=== PATIENT | male | born 1960 | race Caucasian/White ===

== ENCOUNTER → 2016-11-16 | Outpatient (CLI) | payer BC, OTHER ==
[~2016-11-16] MED LIST: ADV250INH INH; ASPI1TAB PO; FISH100049 PO; LISI10TA2 PO; MULTTAB12 PO; PRIL20CA9 PO
[2016-11-16 13:30] LABS: BASO % 0.6 % (0.0-1.0); EOS # 0.1 K/mm3 (0.0-0.50); EOS % 1.7 % (0.0-3.0); LARGE UNSTAINED CELL # 0.1 K/mm3 (0.0-0.4); LARGE UNSTAINED CELL % 1.7 % (0.0-4.0); LYMPH # 1.6 K/mm3 (1.5-4.5); MEAN CORPUSCULAR HEMOGLOBIN 25.8 pg (27.0-33.0); MEAN CORPUSCULAR HGB CONC 31.8 g/dl (32.0-36.5); MEAN CORPUSCULAR VOLUME 81.2 fl (80.0-96.0); MONO # 0.5 K/mm3 (0.0-0.8); MONO % 7.3 % (0.0-5.0); NEUTROPHILS # 4.4 K/mm3 (1.8-7.7); NEUTROPHILS % 66.7 % (36.0-66.0); PLATELET COUNT, AUTOMATED 242 k/mm3 (150-450); RED CELL DISTRIBUTION WIDTH 15.5 % (11.5-14.5); WHITE BLOOD COUNT 6.7 K/mm3 (4.0-10.0)
[2016-11-16 14:21] LABS: ALBUMIN 3.7 GM/DL (3.2-5.2); ALBUMIN/GLOBULIN RATIO 0.95 (1.00-1.93); ALKALINE PHOSPHATASE 96 U/L (45-117); ALT/SGPT 72 U/L (12-78); ANION GAP 7 MEQ/L (8-16); AST/SGOT 40 U/L (15-37); BILIRUBIN,TOTAL 0.7 MG/DL (0.2-1.0); BLOOD UREA NITROGEN 16 MG/DL (7-18); CALCIUM LEVEL 8.7 MG/DL (8.5-10.1); CARBON DIOXIDE LEVEL 28 MEQ/L (21-32); CHLORIDE LEVEL 103 MEQ/L (98-107); CHOLESTEROL LEVEL 178 MG/DL (<200); CREATININE FOR GFR 0.96 MG/DL (0.70-1.30); GLOMERULAR FILTRATION RATE > 60.0 (>56); GLUCOSE, FASTING 98 MG/DL (70-105); POTASSIUM SERUM 4.5 MEQ/L (3.5-5.1); SODIUM LEVEL 138 MEQ/L (136-145); TOTAL PROTEIN 7.6 GM/DL (6.4-8.2); TRIGLYCERIDES LEVEL 169 MG/DL (<150)
[2016-11-17 14:16] LABS: PSA TOTAL 3.2 ng/mL (0.0-4.0)
== END ==
LOC: M WUC 10:52
PROVIDERS: ATTEND Nurse Practitioner Family
DX: I10 Essential (primary) hypertension (principal); D50.9 Iron deficiency anemia, unspecified; Z12.5 Encounter for screening for malignant neoplasm of prostate; E78.5 Hyperlipidemia, unspecified

== ENCOUNTER → 2016-12-19 | Outpatient (CLI) | payer BC, OTHER ==
[~2016-12-19] MED LIST changes: +FERR325T3 PO; +FLUTISP; +VITMTA PO
[2016-12-19 18:30] LABS: ALBUMIN/GLOBULIN RATIO 1.03 (1.00-1.93); ALKALINE PHOSPHATASE 101 U/L (45-117); ALT/SGPT 95 U/L (12-78); ANION GAP 6 MEQ/L (8-16); AST/SGOT 50 U/L (15-37); BILIRUBIN,TOTAL 0.9 MG/DL (0.2-1.0); BLOOD UREA NITROGEN 19 MG/DL (7-18); CALCIUM LEVEL 9.2 MG/DL (8.5-10.1); CARBON DIOXIDE LEVEL 29 MEQ/L (21-32); CHLORIDE LEVEL 105 MEQ/L (98-107); CHOLESTEROL LEVEL 181 MG/DL (<200); CREATININE FOR GFR 1.01 MG/DL (0.70-1.30); GLOMERULAR FILTRATION RATE > 60.0 (>56); GLUCOSE, FASTING 88 MG/DL (70-105); SODIUM LEVEL 140 MEQ/L (136-145); TOTAL PROTEIN 7.9 GM/DL (6.4-8.2); TRIGLYCERIDES LEVEL 133 MG/DL (<150)
[2016-12-19 20:24] LABS: BASO % 0.3 % (0.0-1.0); EOS # 0.1 K/mm3 (0.0-0.50); EOS % 1.3 % (0.0-3.0); LARGE UNSTAINED CELL # 0.1 K/mm3 (0.0-0.4); LARGE UNSTAINED CELL % 1.7 % (0.0-4.0); LYMPH # 1.6 K/mm3 (1.5-4.5); MEAN CORPUSCULAR HEMOGLOBIN 28.2 pg (27.0-33.0); MEAN CORPUSCULAR HGB CONC 32.7 g/dl (32.0-36.5); MEAN CORPUSCULAR VOLUME 86.2 fl (80.0-96.0); MONO # 0.4 K/mm3 (0.0-0.8); MONO % 6.2 % (0.0-5.0); NEUTROPHILS # 4.7 K/mm3 (1.8-7.7); NEUTROPHILS % 68.4 % (36.0-66.0); PLATELET COUNT, AUTOMATED 213 k/mm3 (150-450); RED CELL DISTRIBUTION WIDTH 17.4 % (11.5-14.5); WHITE BLOOD COUNT 6.9 K/mm3 (4.0-10.0)
== END ==
LOC: M WUC 13:44
PROVIDERS: ATTEND Nurse Practitioner Family
DX: I10 Essential (primary) hypertension (principal); D50.9 Iron deficiency anemia, unspecified; E78.4 Other hyperlipidemia

== ENCOUNTER 2016-12-21 10:44 | Inpatient (IN) | payer BC, OTHER ==
[2016-12-21] VITALS (28 sets, daily range): BP systolic 74–144; BP diastolic 47–79
[~2016-12-21] VITALS: Ht 180.3 cm; Wt 118.5 kg
[~2016-12-21 10:44] MED LIST changes: -FERR325T3 PO; -FLUTISP; -VITMTA PO
[2016-12-21] MEDS ORDERED: ONDANSETRON 4MG/2ML VIAL (J2405) IV ONE (11:00)
[2016-12-21] MEDS ORDERED: NS 1,000 ML IV ONE ×2 (11:00→19:30)
[2016-12-21] MEDS ORDERED: FERR325T3 PO (11:23)
[2016-12-21 11:40] LABS: BASO % 0.1 % (0.0-1.0); EOS % 0.1 % (0.0-3.0); LARGE UNSTAINED CELL # 0.1 K/mm3 (0.0-0.4); LARGE UNSTAINED CELL % 0.8 % (0.0-4.0); LYMPH # 2.2 K/mm3 (1.5-4.5); LYMPH % 13.3 % (24.0-44.0); MEAN CORPUSCULAR HEMOGLOBIN 27.5 pg (27.0-33.0); MEAN CORPUSCULAR HGB CONC 31.8 g/dl (32.0-36.5); MEAN CORPUSCULAR VOLUME 86.3 fl (80.0-96.0); MONO # 0.6 K/mm3 (0.0-0.8); MONO % 3.6 % (0.0-5.0); NEUTROPHILS # 12.9 K/mm3 (1.8-7.7); NEUTROPHILS % 82.1 % (36.0-66.0); PLATELET COUNT, AUTOMATED 290 k/mm3 (150-450); RED CELL DISTRIBUTION WIDTH 17.8 % (11.5-14.5); WHITE BLOOD COUNT 15.7 K/mm3 (4.0-10.0)
[2016-12-21 11:44] LABS: INR 1.19
--- NOTE | 2016-12-21 11:50 | REP ---
Portable chest, single AP view, patient sitting: Comparison is 08/02/2010. The lung littlejohn are clear. The cardiac size is normal. The taqueria, mediastinum, and bony thorax are unremarkable. Impression: Negative portable chest. There is no interval change Signed by Zaki Helm MD 12/21/2016 11:41 A
[2016-12-21 11:58] LABS: ALBUMIN 3.1 GM/DL (3.2-5.2); ALBUMIN/GLOBULIN RATIO 0.91 (1.00-1.93); ALKALINE PHOSPHATASE 66 U/L (45-117); ALT/SGPT 58 U/L (12-78); AMYLASE 24 U/L (25-115); ANION GAP 8 MEQ/L (8-16); AST/SGOT 22 U/L (15-37); BILIRUBIN,DIRECT 0.1 MG/DL (0.0-0.2); BILIRUBIN,TOTAL 0.8 MG/DL (0.2-1.0); BLOOD UREA NITROGEN 46 MG/DL (7-18); CALCIUM LEVEL 8.3 MG/DL (8.5-10.1); CARBON DIOXIDE LEVEL 25 MEQ/L (21-32); CHLORIDE LEVEL 108 MEQ/L (98-107); CREATININE FOR GFR 1.15 MG/DL (0.70-1.30); GLOMERULAR FILTRATION RATE > 60.0 (>56); GLUCOSE, FASTING 212 MG/DL (70-105); POTASSIUM SERUM 4.6 MEQ/L (3.5-5.1); SODIUM LEVEL 141 MEQ/L (136-145); TOTAL PROTEIN 6.5 GM/DL (6.4-8.2)
[2016-12-21] MEDS ORDERED: VITMTA PO (13:13)
[2016-12-21] MEDS ORDERED: FLUTISP (13:15)
[2016-12-21] MEDS ORDERED: NS 1,000 ML IV SCH (13:44)
--- NOTE | 2016-12-21 13:44 | HPEPDOC ---
Medical History and Physical Date of Admission Dec 21, 2016 at 12:42 History and Physical ATTENDING: Dr. De La Rosa PCP: Varun Hickman NP CC: nausea HPI: 56yoM with a past medical history significant for HTN, GERD, Fe def anemia who states he felt well until yesterday around 3 pm. He felt weak and nauseated and lied down to rest. When he got up he had persistent nausea and black colored diarrhea. He states he has had approximately 20 episodes of diarrhea since then. Denies abdominal pain, feels bloated. Denies vomitting. States he noticed red color and maroon color in the toilet. Denies any fevers, chills, weakness, fatigue, VASQUEZ, CP, SOB, cough, palpitations , abdominal pain, N/V/D or changes in bowel or bladder habits. Upon presentation to the hospital the patient was found to have UGI bleeding, thus the hospitalist team was consulted. PMHx: [place] HTN GERD ENE/CPAP Fe def anemia allergic rhinitis PSHX: finger surgery as child. EGD 02/14 H/H. gastric polyp. [place] Michie 11/14 hyperplastic polyp x 2. [facility]. SOCHX: Resides in: [facility] Marital Status: Kids: 2. Employment: terminated from [employer] earlier this week. Tobacco use: quit 20 years ago ETOH: 8-10 beers per week. Illicit Drugs: Denies Recent travel: denies Advanced directives: none FAMHX: Mother: heart disease, DM,HTN Father: prostate Ca Siblings: Alive, HTN,DM Children: Alive, well. 1 dtr with h/o PFO. Unexpected deaths due to medical reasons: None. ROS: As noted in HPI, otherwise 11pt ROS of systems reviewed and unremarkable. PE: GEN: 56yoM, appears stated age. Well-nourished, well developed. No acute distress. Alert and oriented x 3. Pleasant, interactive. HEENT: Normocephalic, atraumatic. Pupils are equal, round, and reactive to light. Extraocular movements are intact. No nystagmus appreciated. Sclera are nonicteric. Conjunctiva without injection. Nose midline. Nasal turbinates without bogginess. EACs both patent BL. TMs both visualized and overton with good cone of light, no bulging or erythema. No facial asymmetry. Moist mucous membranes. Dentition fair. Pharynx pink and moist, no cobblestoning. Neck supple , trachea midline. No lymphadenopathy or thyromegaly appreciated. CHEST: Regular rate and rhythm, +S1, +S2 LUNGS: Clear to auscultation bilaterally. No wheezes, rales, or rhonchi. Breathing appears symmetric and easy. Patient is speaking in full sentences. No accessory muscle use. ABD: Protuberant, soft, non-tender, non-distended. +Bowel sounds throughout. No rebound or guarding. No costovertebral angle tenderness. EXT: Pulses 2+ bilaterally dorsalis pedis and radial. No lower extremity edema appreciated. SKIN: [place], dry, warm. Capillary refill <2sec. No rashes. NEURO: Alert and oriented x 3. Cranial nerves III-XII are intact. No focal deficits appreciated. Heme pos in ED. CXR: Negative portable chest. There is no interval change EKG: ST 111bpm. BLOOD CULTURES: x 2 pending UA/UC pending Cdiff/GI panel pending. A&P: 56yoM with a past medical history significant for HTN, GERD, Fe def anemia who states he felt well until yesterday around 3 pm. He felt weak and nauseated and lied down to rest. When he got up he had persistent nausea and black colored diarrhea. He states he has had approximately 20 episodes of diarrhea since then 1. The patient will be admitted to PCU for at least [address] De La Rosa's service. 2. UGI bleeding. S/P IVF in ED. NPO. IV Protonix Q12. ASA on hold. IVF at 75cc/ hr. GI panel/Cdiff/BC/UC pending. Consent for transfusion on chart. Q6 H/H. Dr Burns consulted and plans for scoping tomorrow. 3. Asthma. Advair/Alb prn 4. HTN. Initial BP in ED 96/71. Hold ACEI/HCTZ. Monitor. 5. OAS. CPAP. 6. GERD. PPI. 7. Allergic rhinitis. Flonase. 8. H/O Fe def anemia. Hold Fe supplement. DVT prophylaxis. SCD/TEDS The patient is a Full code. Vital Signs Vital Signs Date Time Temp Pulse Resp B/P (MAP) Pulse Ox O2 Delivery O2 Flow Rate FiO2 12/21/16 11:59 6/22/17 11:03 96.0 113 18 Room Air Laboratory Data Labs 24H Laboratory Tests 2 12/21/16 11:02: White Blood Count 15.7H, Red Blood Count 3.69L, Hemoglobin 10.1#L, Hematocrit 31.9L, Mean Corpuscular Volume 86.3, Mean Corpuscular Hemoglobin 27.5, Mean Corpuscular Hemoglobin Concent 31.8L, Red Cell Distribution Width 17.8H, Platelet Count 290, Neutrophils (%) (Auto) 82.1H, Lymphocytes (%) (Auto) 13.3L, Monocytes (%) (Auto) 3.6, Eosinophils (%) (Auto) 0.1, Basophils (%) (Auto) 0.1, Neutrophils # (Auto) 12.9H, Lymphocytes # (Auto) 2.2, Monocytes # (Auto) 0.6, Eosinophils # (Auto) 0.0, Basophils # (Auto) 0.0, Large Unclassified Cells % 0.8 , Large Unclassified Cells # 0.1, Prothrombin Time 15.2H, Prothromb Time International Ratio 1.19, Activated Partial Thromboplast Time 25.9L, Anion Gap 8 , Glomerular Filtration Rate > 60.0, Lactic Acid Level 2.8*H, Calcium Level 8.3L , Aspartate Amino Transf (AST/SGOT) 22, Alanine Aminotransferase (ALT/SGPT) 58, Alkaline Phosphatase 66, Total Bilirubin 0.8, Direct Bilirubin 0.1, Total Creatine Kinase 85, Creatine Kinase MB 1.0, Creatine Kinase MB Relative Index 1.17, Troponin I < 0.02, Total Protein 6.5, Albumin 3.1#L, Albumin/Globulin Ratio 0.91L, Amylase Level 24L, Lipase 148 CBC/BMP Laboratory Tests 12/21/16 11:02 Red Blood Count 3.69 L, Mean Corpuscular Volume 86.3, Mean Corpuscular Hemoglobin 27.5, Mean Corpuscular Hemoglobin Concent 31.8 L, Red Cell Distribution Width 17.8 H, Neutrophils (%) (Auto) 82.1 H, Lymphocytes (%) (Auto ) 13.3 L, Monocytes (%) (Auto) 3.6, Eosinophils (%) (Auto) 0.1, Basophils (%) ( Auto) 0.1, Neutrophils # (Auto) 12.9 H, Lymphocytes # (Auto) 2.2, Monocytes # ( Auto) 0.6, Eosinophils # (Auto) 0.0, Basophils # (Auto) 0.0 Microbiology Microbiology 12/21/16 Blood Culture, Received Pending 12/21/16 Blood Culture, Received Pending Home Medications Scheduled (Lisinopril/Hydrochlorothi 10-12.5 mg) 1 Tab Tab, 1 TAB PO DAILY Aspirin (Aspirin 81) 81 Mg Tab, 81 MG PO DAILY Ferrous Sulfate (Ferrous Sulfate) 325 Mg Tab, 325 MG PO DAILY Fish Oil (Fish Oil 1000 mg) 1 Cap Cap, 1 CAP PO DAILY Fluticasone Propionate (Fluticasone Propionate) 50 Mcg/Act Spr, 1 SPRAY NA DAILY Multivitamins *[facility] STOCKED* (Thera M Plus *[facility] STOCKED*) 1 Tab Tab, 1 TAB PO DAILY Omeprazole (Prilosec) 20 Mg Cap, 20 MG PO DAILY Miscellaneous Medications Salmeterol/Fluticasone (Advair Diskus 250-50 Mcg/Dose) 14 Puff/Inhaler Aerp, 1 PUFF INH Allergies Coded Allergies: Macadamia Nut Oil (Verified Allergy, Severe, Throat swelling and burning of the lips, 12/21/16) Janki Lee Dec 21, 2016 13:44
[2016-12-21] MEDS ORDERED: ONDANSETRON 4MG/2ML VIAL (J2405) IV PRN ×2 (13:45→22:45)
[2016-12-21] MEDS: FLUTICASONE PROP 0.05% NASAL SPRAY 16 GM (FLONASE) SCH (16:43)
[2016-12-21] MEDS ORDERED: GASTROGRAFIN SOLUTION 30ML PO ONE (19:00)
[2016-12-21] MEDS ORDERED: GASTROGRAFIN SOLUTION 30ML (Q9963) PO ONE (19:30)
[2016-12-21] MEDS ORDERED: MIDAZOLAM INJ 2 MG/2 ML VIAL (J2250) IV STA (20:07)
[2016-12-21] MEDS ORDERED: PROPOFOL 200 MG/20 ML VIAL As Ordered ONE (20:52)
[2016-12-21] MEDS ORDERED: LIDOCAINE 2% INJ 100 MG/5 ML SDV (FOR ANES.) As Ordered ONE (20:52)
[2016-12-21] MEDS ORDERED: MIDAZOLAM INJ 2 MG/2 ML VIAL (J2250) As Ordered ONE (20:54)
[2016-12-21] MEDS: ADVAIR DISKUS 250/50 INH PWD INH SCH (21:00)
[2016-12-21] MEDS ORDERED: VASOPRESSIN INJ 20 UNITS/ML VIAL As Ordered ONE (21:14)
[2016-12-21] MEDS ORDERED: PHENYLephrine HCL 500 MCG/5 ML (100MCG/ML) SYRINGE (J2370) As Ordered ONE (21:15)
[2016-12-21] MEDS ORDERED: GLYCOPYRROLATE INJ 0.2 MG/ML 2 ML VIAL As Ordered ONE (22:16)
[2016-12-21] MEDS ORDERED: NEOSTIGMINE 1MG/ML 5 ML SYRINGE (J2710) As Ordered ONE (22:16)
[2016-12-21] MEDS ORDERED: LR 1,000 ML IV SCH (22:45)
[2016-12-21] MEDS: PANTOPRAZOLE 40MG INJ (PROTONIX) (C9113) IV SCH (23:30)
[2016-12-21] MEDS: NS 1,000 ML IV SCH (23:31)
[2016-12-22] VITALS (128 sets, daily range): BP systolic 75–150; BP diastolic 48–99
[2016-12-22 04:25] LABS: MEAN CORPUSCULAR HEMOGLOBIN 28.8 pg (27.0-33.0); MEAN CORPUSCULAR HGB CONC 33.3 g/dl (32.0-36.5); MEAN CORPUSCULAR VOLUME 86.4 fl (80.0-96.0); RED CELL DISTRIBUTION WIDTH 16.4 % (11.5-14.5); WHITE BLOOD COUNT 16.7 K/mm3 (4.0-10.0)
[2016-12-22 04:53] LABS: ALBUMIN 2.3 GM/DL (3.2-5.2); ALBUMIN/GLOBULIN RATIO 0.92 (1.00-1.93); BILIRUBIN,TOTAL 1.3 MG/DL (0.2-1.0); CALCIUM LEVEL 7.3 MG/DL (8.5-10.1); CREATININE FOR GFR 1.53 MG/DL (0.70-1.30); TOTAL PROTEIN 4.8 GM/DL (6.4-8.2)
--- NOTE | 2016-12-22 05:56 | ECGEPIP ---
Stationary ECG Study [facility] - ED Test Date: 2016-12-21 Pat Name: RADHA UGALDE Department: Room: - Gender: M Master Tax Advisor: chinyere : 1960 Requested By: Janice Navarro Order Number: [id number] Reading MD: Chaim Ivory Measurements Intervals [place] Rate: 111 P: 57 MA: 155 QRS: 43 QRSD: 85 T: 73 QT: 321 QTc: 438 Interpretive Statements SINUS TACHYCARDIA Electronically Signed On 12-22-2016 5:55:44 EDT by Chaim Ivory
[2016-12-22] MEDS: ADVAIR DISKUS 250/50 INH PWD INH SCH ×2 (07:37→22:07)
[2016-12-22] MEDS: FLUTICASONE PROP 0.05% NASAL SPRAY 16 GM (FLONASE) SCH (08:28)
[2016-12-22] MEDS: PANTOPRAZOLE 40MG INJ (PROTONIX) (C9113) IV SCH ×2 (08:28→21:09)
[2016-12-22] MEDS: NS 1,000 ML IV SCH ×3 (08:29→19:16)
[2016-12-22] MEDS ORDERED: NS 1,000 ML IV ONE ×3 (11:00→19:00)
--- NOTE | 2016-12-22 11:44 | IPNPDOC ---
Text Note Date of Service The patient was seen on 12/22/16. NOTE Subjective: Patient is a 56 year old male with a PMHx of HTN, GERD, ENE on CPAP, Iron deficiency anemia, Asthma and Allergic rhinitis who presented to the ER because of nausea and fatigue. He also experienced several episodes of dark colored bowel movement; he described the stool as maroon and red. Patient was admitted for a suspected upper GI bleed. Patient was taken for an EGD on 12/21 afternoon and found that he had some areas of possible concern, however a clear source of the bleeding was not determined. He was transferred back to the floor and began to have more bloody bowel movements. He was later upgraded to ICU because of hypotension and persistent bleeding. Patient was seen and examined at the bedside. He noted some dizziness and has had a few episodes of bloody bowel movements this morning. He denies abdominal pain, nausea or vomiting. Objective: Vitals (See below) General: Lying in bed, no acute distress, comfortable, AAOx3 HEENT: NC, AT CVS: Tachycardic, regular rhythm, +S1S2 Lungs: Fair air entry b/l, -w/r/r Abdomen: Soft, ND, NT, +BSx4 Extremities: +PPx4, - Edema, - Calf tenderness Assessment and plan: 1. Hypovolemic shock - 2/2 acute blood loss anemia / symptomatic anemia - likely 2/2 GI bleeding - likely 2/2 lower GI etiology - Presented with dark stools / bright red stools, several episodes of diarrhea - EGD (12/21) completed by Dr. Burns; no clear evidence of upper GI bleed - Has continued to have bloody bowel movements this morning - Hg upon admission 10.1 - s/p 5 units of PRBC transfusion - Will f/u H&H [id number], Coagulation panel, LDH, Fibrinogen / FDP - Case discussed with Dr. Burns / Dr. Johnson - will take the patient for angiogram to establish source of bleed (suspected diverticular origin) - Dr. Victor on consult; will discuss case - Will transfuse 2 units of PRBC and 2 units of FFP at this time - c/w Protonix 40 IV q12h and aggressive IV fluid hydration 2. LUCIEN - likely 2/2 pre-renal etiology 2/2 hypovolemia - c/w aggressive IV fluid hydration 3. Asthma - no evidence of exacerbation - c/w Advair and Albuterol PRN 4. HTN - BP medications on hold 5. ENE on CPAP - c/w home CPAP use 6. Allergic rhinitis - c/w Flonase 7. Iron deficiency anemia - hold iron supplementation for now 8. GERD - c/w PPI 9. DVT prophylaxis - c/w SCDs VS,Fishbone, I+O VS, Fishbone, I+O Laboratory Tests 12/21/16 16:46 12/21/16 22:59 12/22/16 04:17 Red Blood Count 3.42 L, Mean Corpuscular Volume 86.4, Mean Corpuscular Hemoglobin 28.8, Mean Corpuscular Hemoglobin Concent 33.3, Red Cell Distribution Width 16.4 H, Calcium Level 7.3 L, Aspartate Amino Transf (AST/SGOT ) 19, Alanine Aminotransferase (ALT/SGPT) 34, Alkaline Phosphatase 45, Total Bilirubin 1.3 #H, Total Protein 4.8 #L, Albumin 2.3 #L 12/22/16 08:09 Vital Signs Date Time Temp Pulse Resp B/P (MAP) Pulse Ox O2 Delivery O2 Flow Rate FiO2 12/22/16 09:47 97.6 121 18 130/56 (80) 94 Room Air 12/21/16 23:15 2.0 I&O- Last 24 Hours up to 6 AM 12/22/16 06:00 Intake Total 4180 ml Output Total 1225 ml Balance 2955 ml MYKE PORTILLO MD Dec 22, 2016 11:44
[2016-12-22 12:47] LABS: INR 1.33
[2016-12-22] MEDS ORDERED: HEPARIN 1,000 UNITS/ML 10ML VIAL (FOR RADIOLOGY& DIALYSIS ONLY) As Ordered ONE (14:08)
[2016-12-22] MEDS ORDERED: ISOVUE-300 61% 50ML VIAL (Q9967) As Ordered ONE ×5 (14:08→19:27)
--- NOTE | 2016-12-22 14:08 | ROOR ---
Patient Name: Faisal Najera Procedure Date: 12/21/2016 9:55 PM Date of : 1960 Age: 56 Gender: Male Note Status: Finalized Procedure: Upper GI endoscopy + Hemoclips. Indications: Active gastrointestinal bleeding Providers: Vinicio Burns MD Referring MD: 1. No Referring Physician 1. No Referring Physician, Admin. Requesting Provider: Medicines: General Anesthesia Complications: No immediate complications. Procedure: Pre-Anesthesia Assessment: - The heart rate, respiratory rate, oxygen saturations, blood pressure, adequacy of pulmonary ventilation, and response to care were monitored throughout the procedure. The Endoscope was introduced through the mouth, and advanced to the second part of duodenum. The upper GI endoscopy was accomplished without difficulty. The patient tolerated the procedure well. Findings: The Z-line was irregular and was found 40 cm from the incisors. There is no endoscopic evidence of varices in the entire esophagus. There is no endoscopic evidence of bleeding in the entire examined stomach. Two diminutive mucosal papules (nodules) with no bleeding and no stigmata of recent bleeding were found in the stomach. To prevent bleeding post-intervention, three hemostatic clips were successfully placed (MR conditional). There was no bleeding at the end of the procedure. The exam of the duodenum was otherwise normal. Impression: - Z-line irregular, 40 cm from the incisors. - Two mucosal papules (nodules) found in the stomach. Clips (MR conditional) were placed. - No specimens collected. - The examination was otherwise normal. Recommendation: - Patient has a contact number available for emergencies. The signs and symptoms of potential delayed complications were discussed with the patient. Return to normal activities tomorrow. Written discharge instructions were provided to the patient. - Return patient to ICU for ongoing care. - The findings and recommendations were discussed with the patient's family. Vinicio Burns MD Vinicio Burns MD 12/22/2016 2:07:35 PM This report has been signed electronically. Number of Addenda: 0 Note Initiated On: 12/21/2016 9:55 PM Estimated Blood Loss: Estimated blood loss: none.
[2016-12-22] MEDS ORDERED: fentaNYL 100 MCG/2 ML INJECTION (J3010) As Ordered ONE (14:33)
[2016-12-22] MEDS ORDERED: MIDAZOLAM INJ 2 MG/2 ML VIAL (J2250) As Ordered ONE (14:33)
[2016-12-22 17:06] LABS: BASO % 0.2 % (0.0-1.0); EOS % 0.1 % (0.0-3.0); LARGE UNSTAINED CELL # 0.2 K/mm3 (0.0-0.4); LARGE UNSTAINED CELL % 1.3 % (0.0-4.0); LYMPH # 1.8 K/mm3 (1.5-4.5); LYMPH % 12.2 % (24.0-44.0); MEAN CORPUSCULAR HEMOGLOBIN 29.6 pg (27.0-33.0); MEAN CORPUSCULAR HGB CONC 33.2 g/dl (32.0-36.5); MEAN CORPUSCULAR VOLUME 89.2 fl (80.0-96.0); MONO # 1.1 K/mm3 (0.0-0.8); MONO % 7.1 % (0.0-5.0); NEUTROPHILS # 11.9 K/mm3 (1.8-7.7); NEUTROPHILS % 79.2 % (36.0-66.0); PLATELET COUNT, AUTOMATED 141 k/mm3 (150-450); RED CELL DISTRIBUTION WIDTH 16.2 % (11.5-14.5)
[2016-12-22 17:31] LABS: ALBUMIN 1.7 GM/DL (3.2-5.2); BILIRUBIN,TOTAL 0.7 MG/DL (0.2-1.0); CALCIUM LEVEL 6.6 MG/DL (8.5-10.1); CREATININE FOR GFR 1.35 MG/DL (0.70-1.30); GLOMERULAR FILTRATION RATE 57.8 (>56); POTASSIUM SERUM 4.3 MEQ/L (3.5-5.1); TOTAL PROTEIN 3.4 GM/DL (6.4-8.2)
--- NOTE | 2016-12-22 18:41 | REP ---
AP SEMI-ERECT PORTABLE CHEST: 12/22/2016 at 05:39 PM. Comparison: 12/21/2016. Clinical history: Central line placement. Findings: There is a right jugular catheter but it terminates at about the superior margin of the medial head of the right clavicle in the jugular vein. No apical fluid collection, right sided effusion or pneumothorax. No abnormal widening of mediastinum. Allowing for this portable seated technique in a semi-erect position. Impression: 1. Right jugular catheter with tip in the jugular vein at level of the superior margin of the medial clavicle. No pneumothorax, effusion or other acute finding. Signed by Earl Fuller MD 12/22/2016 08:47 P
--- NOTE | 2016-12-22 23:05 | CR ---
DATE OF CONSULTATION: 12/21/2016 REASON FOR CONSULTATION: This is a 56-year-old white male who was admitted to [facility] ([facility]) on 12/21/2016. The patient presented with a history of non feeling well approximately 24 hours prior to admission with generally feeling weak and nauseated and almost passing out. He had apparently a persistent black-colored diarrhea up to 20 episodes of frequent bowel movements. No apparent hematemesis, no hematemesis or vomiting. Apparently had red color in the stool and maroon, red colored bowel movements. The patient . He has had previous upper endoscopy approximately a year ago for anemia. Had a colonoscopy which showed diverticulosis. Upper endoscopy showed he had a gastric polyp which was ligated. Had a repeat followup scope that showed that the polyp was not present anymore. The patient apparently his anemia corrected and he was doing well until 24 hours prior to this admission. PAST MEDICAL HISTORY: 1. Positive for asthma 2. Hypertension. 3. Gastroesophageal reflux disease (GERD). 4. Iron-deficiency anemia 5. Allergic rhinitis. PAST SURGICAL HISTORY: Upper endoscopy in January 2016, where he had gastric polyp and colonoscopy some time in October where he had a hyperplastic polyp. SOCIAL HISTORY: Cigarettes, alcohol noncontributory. The patient drinks about 8-10 beers per week. FAMILY HISTORY: Noncontributory to above problem. REVIEW OF SYSTEMS: Negative. PHYSICAL EXAMINATION: GENERAL: Well-developed, well-nourished, somewhat pale-appearing white male in no obvious acute distress. Appears stated age. CHEST: Was clear to auscultation. CARDIOVASCULAR: Exam showed regular rhythm. No murmurs or gallops. Normal physiological split S1, S2. ABDOMEN: Soft, nontender. No masses, guarding, rebound, hepatosplenomegaly. Bowel sounds positive. EXTREMITIES: No cyanosis, clubbing, edema. LABORATORY STUDIES: On admission showed a hemoglobin of 10 and 31.9. The patient's chemistry was normal. Amylase and lipase were normal. Coagulation showed an INR of 1.19 on admission. It has gone up over the last 24 hours to 1.33. ANALYSIS: Gastrointestinal (GI) bleed most likely probable is a low GI source. PLAN: Set the patient up for an upper endoscopy to evaluate for possible upper GI bleeding source versus acute diverticular bleed. The patient should be given blood products as needed and fresh frozen plasma as needed.
[2016-12-23] VITALS (42 sets, daily range): BP systolic 107–152; BP diastolic 55–97
--- NOTE | 2016-12-23 00:34 | CR ---
DATE OF CONSULTATION: 12/22/2016 REASON FOR CONSULTATION: Lower gastrointestinal (GI) bleed. HISTORY OF PRESENT ILLNESS: The patient is a very pleasant 56-year-old man who presented on 12/21 with a 1-day history of some dark stool with black diarrhea. This had begun on Sunday at about three in the afternoon. He apparently has an underlying history of iron deficiency anemia. The patient, on the afternoon of the , had developed some nausea and had some dark black diarrhea. He went to the bathroom multiple times. He began to notice some more red color or maroon to the toilet after bowel movements. He became more lightheaded and felt quite weak and tired. He presented to the emergency department at about 10:45 in the morning on the . He denied any pain. He has a history of diverticulosis identified on a prior colonoscopy. He has had a previous gastric polyp treated. His evaluation revealed a hematocrit of 32, which was down 13 points from 2 days earlier when he had undergone blood work. Chemistries revealed a rise in his BUN from 19 on 12/19 to 46 on the . The patient was admitted by the hospitalist service. I was contacted by Dr. Nichole of the hospitalist service on the . At that time, the patient had a transient episode of hypotension and was receiving additional blood. When I came to see the patient later, the patient had just been endoscoped for an upper endoscopy by Dr. Burns of gastroenterology. He was being taken to the operating room for an endoscopy under anesthesia for a more accurate evaluation. I accompanied the patient and Dr. Burns to the operating room (OR) and observed the second endoscopy, which was relatively unremarkable with no obvious source of bleeding identified. He has continued to bleed today passing some red blood and clots. The patient has been transfused and has so far received 8 units of packed red blood cells and 1 unit of fresh frozen plasma. The patient had an arteriogram today ordered by Dr. Burns. This, on initial review, had suggested no source, but apparently subsequent review in more detail of the images revealed a subtle finding and Dr. Johnson has asked for the patient to be brought back for additional imaging. The patient just now at 1820 has gone back to the interventional radiology suite for additional imaging. ALLERGIES: The patient's only reported allergy is macadamia nut oil. MEDICATIONS: Prior to admission include: - lisinopril/hydrochlorothiazide 10/12.5 mg one tablet daily - aspirin 81 mg by mouth daily - ferrous sulfate 325 mg by mouth daily - fish oil 1000 mg one capsule daily - fluticasone propionate 50 mcg per spray one spray nasally daily - multivitamin - omeprazole 20 mg by mouth daily MEDICAL HISTORY: Significant for some hypertension and reflux. He has a history of asthma. He has obstructive sleep apnea and iron deficiency anemia. He has a history of allergic rhinitis. The patient had treatment for an injury of a knuckle on one hand. He has had a previous treatment for injury to his meniscus in his left knee and he has had several upper endoscopies and colonoscopies. SOCIAL HISTORY: The patient is and lives in [place]. He has two children. He is a former smoker who quit many years ago. He does drink some beer weekly. FAMILY HISTORY: Shows no history of colorectal cancer or polyps. REVIEW OF SYSTEMS: Reveals no history of seizures or stroke. He has had no myocardial infarction (UT) or chest pain. He denies any hemoptysis or recent cough or sputum production. He denies any abdominal pain. He denies any prior history of ulcer, pancreatitis, or hepatitis. He has had no prior history of bleeding like he is having now. He denies any current bone or joint issues. There is no history of deep venous thrombosis (DVT) or pulmonary embolus. PHYSICAL EXAMINATION: Reveals a perhaps mildly obese pleasant man. He is alert, oriented and cooperative. Sclerae are anicteric. Mucous membranes are moist. Heart exam shows a regular rate and rhythm. The lungs are clear to auscultation. The abdomen is mildly protuberant and soft and nontender. He has active bowel sounds. LABORATORY STUDIES: Most recent labs today are from 1645 and show a white count of 15,000 with a hemoglobin of 6.4, hematocrit of 19.2 and a platelet count of 141,000. His most recent coagulation studies, he had a fibrinogen at noon that was 199, which is slightly low, a PT of 16.6 with an INR of 1.33, and an APTT of 25.8. Chemistry profile from the same time on the afternoon of the showed a sodium of 148, potassium 4.3, chloride 119, CO2 of 22, BUN of 47, creatinine 1.35 and a glucose of 154. His calcium is low at 6.6. Total protein is 3.4 with an albumin of 1.7. IMPRESSION: 1. Lower gastrointestinal (GI) bleed of unclear etiology, though possibly diverticular in origin. 2. Hypertension. 3. Gastroesophageal reflux. 4. Obstructive sleep apnea being treated with continuous positive airway pressure (CPAP). 5. History of iron deficiency anemia. 6. Asthma. 7. Allergic rhinitis. RECOMMENDATIONS: The patient has just gone back to interventional radiology for additional imaging based on a finding from the study earlier today. If the arteriogram is not successful in identifying a bleeding source, then it may be worthwhile considering a nuclear bleeding scan. My experience with these has been that they are most often normal and do not reveal a bleeding source, but there is a chance that it would be successful on this occasion. The other alternative would be to consider a colonoscopy to see if there is a chance of identifying an ongoing bleeder. This would require a bowel prep most likely to try to clear the shed blood from the colon so that there might be some chance of identifying a fresh bleeding point. I personally do not have any great experience with this technique and if the car mechanic is available to perform colonoscopy this would be my preference. If a definite site of bleeding can be identified, then surgery is at least an available option if he does not stop bleeding. We will wait to see if his arteriogram sheds any more light on his bleeding source. FRED
[2016-12-23] MEDS: NS 1,000 ML IV SCH (06:00)
[2016-12-23 07:12] LABS: ALBUMIN/GLOBULIN RATIO 1.05 (1.00-1.93); ALKALINE PHOSPHATASE 28 U/L (45-117); ALT/SGPT 18 U/L (12-78); ANION GAP 5 MEQ/L (8-16); AST/SGOT 14 U/L (15-37); BLOOD UREA NITROGEN 37 MG/DL (7-18); CALCIUM LEVEL 7.1 MG/DL (8.5-10.1); CARBON DIOXIDE LEVEL 26 MEQ/L (21-32); CHLORIDE LEVEL 120 MEQ/L (98-107); CREATININE FOR GFR 0.98 MG/DL (0.70-1.30); GLOMERULAR FILTRATION RATE > 60.0 (>56); GLUCOSE, FASTING 123 MG/DL (70-105); POTASSIUM SERUM 3.7 MEQ/L (3.5-5.1); SODIUM LEVEL 151 MEQ/L (136-145); TOTAL PROTEIN 3.9 GM/DL (6.4-8.2)
[2016-12-23 07:50] LABS: WHITE BLOOD COUNT 12.3 K/mm3 (4.0-10.0)
[2016-12-23 07:51] LABS: MEAN CORPUSCULAR HEMOGLOBIN 30.6 pg (27.0-33.0); MEAN CORPUSCULAR HGB CONC 34.7 g/dl (32.0-36.5); MEAN CORPUSCULAR VOLUME 88.1 fl (80.0-96.0); RED CELL DISTRIBUTION WIDTH 15.6 % (11.5-14.5)
[2016-12-23] MEDS: ADVAIR DISKUS 250/50 INH PWD INH SCH ×2 (08:37→19:44)
[2016-12-23] MEDS: PANTOPRAZOLE 40MG INJ (PROTONIX) (C9113) IV SCH ×2 (09:03→21:33)
[2016-12-23] MEDS: FLUTICASONE PROP 0.05% NASAL SPRAY 16 GM (FLONASE) SCH (09:03)
--- NOTE | 2016-12-23 09:50 | RO ---
DATE OF PROCEDURE: 12/22/2016 INDICATION FOR PROCEDURE: Gastrointestinal (GI) bleeding with hypotension. PREPROCEDURE DIAGNOSIS: Gastrointestinal (GI) bleeding with hypotension. POSTPROCEDURE DIAGNOSIS: Gastrointestinal (GI) bleeding with hypotension. PROCEDURE: Right internal jugular (IJ) Cordis sheath. SURGEON: Dr. Marialuisa Glynn RESIDENCE HALL DIRECTOR: Dr. Giuliano De La Rosa ANESTHESIA: 1% local lidocaine. SEDATION: None. VENTILATION: 3 liters nasal cannula. The patient was placed in supine position. The right side of the patient's neck was painted with ChloraPrep and covered in a sterile manner. Ultrasound with sterile probe cover was used. The patient's IJ was located. 1% local lidocaine superficially injection was done. The needle was inserted with ultrasound guidance. Flash of blood was obtained. A wire was threaded through the needle and the needle was removed. The wire position was confirmed with ultrasound. The sheath site was dilated and the Cordis sheath was placed via Seldinger technique. The Cordis sheath was secured with stitches and dressing was placed. X-ray was ordered for confirmation. The patient tolerated the procedure with no complications. A blood transfusion initiated through the Cordis. Estimated blood loss about 10 mL.
--- NOTE | 2016-12-23 12:34 | IPNPDOC ---
Text Note Date of Service The patient was seen on 12/23/16. NOTE Subjective: Patient is a 56 year old male with a PMHx of HTN, GERD, ENE on CPAP, Iron deficiency anemia, Asthma and Allergic rhinitis who presented to the ER because of nausea and fatigue. He also experienced several episodes of dark colored bowel movement; he described the stool as maroon and red. Patient was admitted for a suspected upper GI bleed. Patient was taken for an EGD on 12/21 afternoon and found that he had some areas of possible concern, however a clear source of the bleeding was not determined. He was transferred back to the floor and began to have more bloody bowel movements. He was later upgraded to ICU because of hypotension and persistent bleeding. Patient was seen and examined at the bedside. He notes that he is no longer experiencing any dizziness. He denies any abdominal pain, nausea or vomiting. Nursing has noted that he has had 3 maroon colored bowel movements since the angiogram yesterday. Objective: Vitals (See below) General: Lying in bed, no acute distress, comfortable, AAOx3 HEENT: NC, AT CVS: Tachycardic, regular rhythm, +S1S2 Lungs: Fair air entry b/l, -w/r/r Abdomen: Soft, ND, NT, +BSx4 Extremities: +PPx4, - Edema, - Calf tenderness Assessment and plan: 1. s/p Hypovolemic shock - 2/2 acute blood loss anemia / symptomatic anemia - likely 2/2 GI bleeding - likely 2/2 lower GI etiology - Presented with dark stools / bright red stools, several episodes of diarrhea - EGD (12/21) completed by Dr. Burns; no clear evidence of upper GI bleed - Has continued to have bloody bowel movements this morning - s/p 14 units of PRBC transfusion; 3 units FFP, 1 unit Platelet, 10 units Cryoprecipitate - s/p mesenteric angiogram x 2 - has had coiling and embolization of bleeding vessel - Will continue to follow H&H w6earci - c/w Protonix 40 IV q12h and aggressive IV fluid hydration 2. LUCIEN - likely 2/2 pre-renal etiology 2/2 hypovolemia - c/w aggressive IV fluid hydration 3. Asthma - no evidence of exacerbation - c/w Advair and Albuterol PRN 4. HTN - BP medications on hold 5. ENE on CPAP - c/w home CPAP use 6. Allergic rhinitis - c/w Flonase 7. Iron deficiency anemia - hold iron supplementation for now 8. GERD - c/w PPI 9. DVT prophylaxis - c/w SCDs VS,Fishbone, I+O VS, Fishbone, I+O Laboratory Tests 12/22/16 16:46 Red Blood Count 2.15 L, Mean Corpuscular Volume 89.2, Mean Corpuscular Hemoglobin 29.6, Mean Corpuscular Hemoglobin Concent 33.2, Red Cell Distribution Width 16.2 H, Neutrophils (%) (Auto) 79.2 H, Lymphocytes (%) (Auto ) 12.2 L, Monocytes (%) (Auto) 7.1 H, Eosinophils (%) (Auto) 0.1, Basophils (%) (Auto) 0.2, Neutrophils # (Auto) 11.9 H, Lymphocytes # (Auto) 1.8, Monocytes # ( Auto) 1.1 H, Eosinophils # (Auto) 0.0, Basophils # (Auto) 0.0, Calcium Level 6.6 L, Aspartate Amino Transf (AST/SGOT) 8 L, Alanine Aminotransferase (ALT/SGPT ) 20, Alkaline Phosphatase 30 L, Total Bilirubin 0.7, Total Protein 3.4 #L, Albumin 1.7 #L 12/22/16 21:30 12/23/16 02:06 12/23/16 06:42 Red Blood Count 2.47 L, Mean Corpuscular Volume 88.1, Mean Corpuscular Hemoglobin 30.6, Mean Corpuscular Hemoglobin Concent 34.7, Red Cell Distribution Width 15.6 H, Calcium Level 7.1 L, Aspartate Amino Transf (AST/SGOT ) 14 L, Alanine Aminotransferase (ALT/SGPT) 18, Alkaline Phosphatase 28 L, Total Bilirubin 1.0, Total Protein 3.9 L, Albumin 2.0 L Vital Signs Date Time Temp Pulse Resp B/P (MAP) Pulse Ox O2 Delivery O2 Flow Rate FiO2 12/23/16 11:01 99 20 129/68 (88) 99 Room Air 12/23/16 10:36 98.5 12/23/16 05:00 2.0 I&O- Last 24 Hours up to 6 AM 12/23/16 06:00 Intake Total 7973 ml Output Total 2635 ml Balance 5338 ml MYKE PORTILLO MD Dec 23, 2016 12:34
[2016-12-23] MEDS ORDERED: NS 0.45% 1,000 ML IV SCH (12:45)
[2016-12-23 15:14] LABS: MEAN CORPUSCULAR HEMOGLOBIN 30.2 pg (27.0-33.0); MEAN CORPUSCULAR HGB CONC 34.6 g/dl (32.0-36.5); MEAN CORPUSCULAR VOLUME 87.3 fl (80.0-96.0); RED CELL DISTRIBUTION WIDTH 15.7 % (11.5-14.5); WHITE BLOOD COUNT 12.1 K/mm3 (4.0-10.0)
--- NOTE | 2016-12-23 17:09 | REPKIM ---
CLINICAL HISTORY: Patient presents with gastrointestinal bleeding requiring multiple transfusions. The referring service has asked a mesenteric arteriogram/ possible intervention. Upper GI endoscopy is negative. PROCEDURE PERFORMED: 1. Selective Celiac Arteriogram 2. Selective Superior Mesenteric Arteriogram x 2 3. Selective Inferior Mesenteric Arteriogram 4. Selective Jejunal Branch Arteriograms x 2 5. Superseletive Jejunal Branch Arteriogram and Embolization 6. Completion Arteriogram INTERVENTIONALIST: Dr. Srinath Johnson CONSENT: The risks, benefits and alternatives to the procedure were explained to the patient and informed written consent was obtained. MEDICATIONS: Local Lidocaine 2%, Anxiolytic Versed 0.5 mg and Fentanyl 25 mcg IV. Independent trained observer was present during the entire duration of the conscious sedation for monitoring. EBL: less than 20 mL for the procedure + GIB CONTRAST: 187 mL plus 126 mL Isovue 300 FLUORO TIME: 41.2 minutes DEVICE USED: 2mm Interlock 0.018 Coil Lot#[id number] COMPLICATIONS: None immediate PROCEDURE/FINDINGS: The patient was brought to the interventional radiology suite where a timeout procedure was performed. The patient was placed in the supine position and the right groin prepped and draped in a sterile fashion. A 4-Indian vascular sheath was introduced into the right common femoral artery using the Seldinger technique with a micropuncture needle, after infiltration of the skin and deep tissues with local anesthetic. Over a guidewire, a 4-Indian selective catheter was advanced. Selective catheterization of the celiac artery and superior mesenteric artery were performed. The inferior mesenteric origin was found to be severely stenosis. For this reason, a microcatheter was coaxillay introduced. Selective catheterization of the inferior mesenteric artery was performed using a microcatheter. Contrast was injected and a selective inferior mesenteric arteriogram was performed. Initial selective mesenteric arteriogram showed no obvious active extravasation contrast seen at the time of angiogram. This also showed diffuse vasoconstriction of superior and inferior mesenteric branch vessels. Due to ongoing clinical gastrointestinal bleeding requiring multiple transfusions, patient was brought back for a 2nd mesenteric arteriogram specifically for suspected superior mesenteric artery branches. A 4-Indian selective catheter was introduced and its tip positioned in the superior mesenteric artery. Contrast was injected and selective superior mesenteric arteriogram was performed. This showed an abnormal, approximately 2 cm, hypervascular blush with an active extravasation of contrast. Selective catheterizations of proximal two jejunal branches were performed. Contrast was injected into each of these aforementioned arteries and selective proximal jejunal branch mesenteric angiograms were performed. This showed a hypervascular lesion associated what appears to be a draining vein suggestive of vascular malformation/AVM lesion. A microcatheter was coaxially introduced and advanced into the target feeding vessel as distal as possible. Contrast injection showed multiple tiny collateral vessels feeding to the hypervascular lesion. Tiny sub mm collateral vessels were embolized using gelfoam followed by superselective embolization of feeding jejunal branch using a 2mm 0.018 microcoil. Post-embolization contrast injection showed excellent stasis of the target vessel. Following this, completion selective superior mesenteric arteriogram was performed. This showed excellent stasis of the target branches with no further visualization of the hypervascular lesion. The catheter and vascular sheath were removed. Hemostasis was achieved by manual compression over the puncture site. The patient tolerated the procedure well with no immediate complications. This procedure was performed with fluoroscopic guidance. Dr. Johnson was present. FINDINGS: 1. The celiac artery branches into left gastric artery, splenic artery and common hepatic artery. No evidence of active extravasation of contrast or angiographic cause for gastrointestinal bleeding. 2. Selective inferior mesenteric arteriogram demonstrates severe stenosis of the inferior mesenteric artery at its origin. Diffuse vasoconstriction of inferior mesenteric branches. The inferior mesenteric vein is patent. There is no active extravasation of contrast or angiographic cause for gastrointestinal bleeding. 3. Selective superior mesenteric arteriogram reveals approximately 2 cm hypervascular lesion with an active extravasation of contrast off the proximal jejunal branches in the proximal jejunum. There is a draining vein off the hypervascular lesion which then opacifies superior mesenteric vein suggestive of vascular malformation/AVM. The superior mesenteric vein is patent. 4. Superselective proximal jejunal branch arteriograms and successful embolization of the target jejunal branch feeding vessels as discussed above. IMPRESSION: Approximately 2cm hypervascular lesion involving the proximal jejunum with an active extravasation of contrast in this patient with massive GI bleeding. The hypervascular lesion has multiple tiny feeding proximal jejunal branches with a draining vein suggestive of vascular malformation/AVM. Other possibilities include hypervascular mass and ulceration. Successful superselective embolization of the target jejunal branch feeding vessels as discussed above. Continue supportive care and serial Hg/Hct monitoring. Bleeding scan could be considered if persistent bleeding. Plan for a follow up CT abdomen/pelvis with IV contrast only (dual phase) for further evaluation when stable. Patient also will need follow up endoscopy/capsule endoscopy for further evaluation of other possible AVMs/lesions. Findings and plan discussed with Drs. Nichole, Rj and Family. Please see the report above for all other findings and details. cc: MD Wily Albarran DO Gerald S. Weinstein, MD Robert O. Kimball, MD MTDD
[2016-12-23] MEDS ORDERED: ACETAMINOPHEN TAB 650MG DOSE (2X325MG) PO PRN (21:30)
[2016-12-24] VITALS (11 sets, daily range): BP systolic 100–130; BP diastolic 59–75
[2016-12-24 03:20] LABS: MEAN CORPUSCULAR HEMOGLOBIN 30.6 pg (27.0-33.0); MEAN CORPUSCULAR HGB CONC 34.5 g/dl (32.0-36.5); MEAN CORPUSCULAR VOLUME 88.8 fl (80.0-96.0); RED CELL DISTRIBUTION WIDTH 15.7 % (11.5-14.5)
[2016-12-24 03:59] LABS: ALBUMIN 1.9 GM/DL (3.2-5.2); ALKALINE PHOSPHATASE 47 U/L (45-117); ALT/SGPT 31 U/L (12-78); ANION GAP 5 MEQ/L (8-16); AST/SGOT 39 U/L (15-37); BILIRUBIN,TOTAL 1.2 MG/DL (0.2-1.0); BLOOD UREA NITROGEN 25 MG/DL (7-18); CARBON DIOXIDE LEVEL 28 MEQ/L (21-32); CHLORIDE LEVEL 114 MEQ/L (98-107); CREATININE FOR GFR 0.77 MG/DL (0.70-1.30); GLOMERULAR FILTRATION RATE > 60.0 (>56); GLUCOSE, FASTING 108 MG/DL (70-105); POTASSIUM SERUM 3.4 MEQ/L (3.5-5.1); SODIUM LEVEL 147 MEQ/L (136-145); TOTAL PROTEIN 3.8 GM/DL (6.4-8.2)
[2016-12-24] MEDS ORDERED: OCTREOTIDE ACETATE 1,200 MCG in NS 238.8 ML IV SCH (04:15)
[2016-12-24] MEDS ORDERED: PANTOPRAZOLE SODIUM 40 MG in D5W MINI-BAG PLUS 50 ML IV SCH (04:15)
--- NOTE | 2017-04-24 17:55 | DS.PDOC ---
Discharge Summary General Date of Admission Dec 21, 2016 at 12:42 Date of Discharge 12/24/16 Discharge Summary PROCEDURES PERFORMED DURING STAY: EGD 12/22/[address] Lorraine Burns Central Line Placement 12/23/[address] Terra Glynn Angiography with intervention x2 12/[address] Alondra Johnson ADMITTING DIAGNOSES / DISCHARGE DIAGNOSES: 1. s/p Hypovolemic shock - 2/2 acute blood loss anemia / symptomatic anemia - likely 2/2 GI bleeding - likely 2/2 lower GI etiology 2. LUCIEN - likely 2/2 pre-renal etiology 2/2 hypovolemia COMPLICATIONS/CHIEF COMPLAINT: Experienced several episodes of dark colored bowel movement HISTORY OF PRESENT ILLNESS: Patient is a 56 year old male with a PMHx of HTN, GERD, ENE on CPAP, Iron deficiency anemia, Asthma and Allergic rhinitis who presented to the ER because of nausea and fatigue. He also experienced several episodes of dark colored bowel movement; he described the stool as maroon and red. Patient was admitted for a suspected upper GI bleed. Patient was taken for an EGD on 12/21 afternoon and found that he had some areas of possible concern, however a clear source of the bleeding was not determined. He was transferred back to the floor and began to have more bloody bowel movements. He was later upgraded to ICU because of hypotension and persistent bleeding. HOSPITAL COURSE: 1. s/p Hypovolemic shock - 2/2 acute blood loss anemia / symptomatic anemia - likely 2/2 GI bleeding - likely 2/2 lower GI etiology - Presented with dark stools / bright red stools, several episodes of diarrhea; continued through hospital stay - EGD completed by Dr. Burns with no clear evidence of upper GI bleed - s/p 14 units of PRBC transfusion; 3 units FFP, 1 unit Platelet, 10 units Cryoprecipitate - s/p mesenteric angiogram x 2 - has had coiling and embolization of bleeding vessel - c/w Protonix 40 IV q12h and aggressive IV fluid hydration - Failed to improve and Hg did not stabilize; was transferred to [facility] for further medical management 2. LUCIEN - likely 2/2 pre-renal etiology 2/2 hypovolemia - c/w aggressive IV fluid hydration 3. Asthma - no evidence of exacerbation - c/w Advair and Albuterol PRN 4. HTN - BP medications on hold 5. ENE on CPAP - c/w home CPAP use 6. Allergic rhinitis - c/w Flonase 7. Iron deficiency anemia - hold iron supplementation for now 8. GERD - c/w PPI 9. DVT prophylaxis - c/w SCDs DISCHARGE MEDICATIONS: Please see below. ALLERGIES: Please see below. LABORATORY DATA: Please see below. PROGNOSIS: Guarded DISCHARGE PLAN / INSTRUCTIONS; Transfer to [facility] in [place] for further management of upper GI bleed DISCHARGE CONDITION: Guarded TIME SPENT ON DISCHARGE: Greater than 35 minutes Discharge Medications Scheduled (Lisinopril/Hydrochlorothi 10-12.5 mg) 1 Tab Tab, 1 TAB PO DAILY, (Reported) Aspirin (Aspirin 81) 81 Mg Tab, 81 MG PO DAILY, (Reported) Ferrous Sulfate (Ferrous Sulfate) 325 Mg Tab, 325 MG PO DAILY, (Reported) Fish Oil (Fish Oil 1000 mg) 1 Cap Cap, 1 CAP PO DAILY, (Reported) Fluticasone Propionate (Fluticasone Propionate) 50 Mcg/Act Spr, 1 SPRAY NA DAILY , (Reported) Multivitamins *[facility] STOCKED* (Thera M Plus *[facility] STOCKED*) 1 Tab Tab, 1 TAB PO DAILY, (Reported) Omeprazole (Prilosec) 20 Mg Cap, 20 MG PO DAILY, (Reported) Salmeterol/Fluticasone (Advair Diskus 250-50 Mcg/Dose) 14 Puff/Inhaler Aerp, 1 PUFF INH BID, (Reported) Allergies Coded Allergies: Macadamia Nut Oil (Verified Allergy, Severe, Throat swelling and burning of the lips, 12/21/16) MYKE PORTILLO MD Apr 24, 2017 17:55
== END 2016-12-24 05:35 | DRG 173 ==
LOC: M ED 12:40 → M ED INP 12:42 → M ED 12:57 → M PCU 14:56 → M ICU 18:44
PROVIDERS: ADMIT Hospitalist; ATTEND Internal Medicine
PROC: 30233N1 Transfusion of Nonautologous Red Blood Cells into Peripheral Vein, Percutaneous Approach (ICD-10-PCS; 2016-12-21)
PROC: 0W3P8ZZ Control Bleeding in Gastrointestinal Tract, Via Natural or Artificial Opening Endoscopic (ICD-10-PCS; principal; 2016-12-21 20:28)
PROC: 04V Lower Arteries, Restriction (ICD-10-PCS; 2016-12-22)
PROC: 05HM33Z Insertion of Infusion Device into Right Internal Jugular Vein, Percutaneous Approach (ICD-10-PCS; 2016-12-22)
PROC: 30233K1 Transfusion of Nonautologous Frozen Plasma into Peripheral Vein, Percutaneous Approach (ICD-10-PCS; 2016-12-22)
PROC: 30233M1 Transfusion of Nonautologous Plasma Cryoprecipitate into Peripheral Vein, Percutaneous Approach (ICD-10-PCS; 2016-12-22)
DX: Q27.33 Arteriovenous malformation of digestive system vessel (principal); R57.8 Other shock; K92.2 Gastrointestinal hemorrhage, unspecified; I10 Essential (primary) hypertension; K21.9 Gastro-esophageal reflux disease without esophagitis; D50.9 Iron deficiency anemia, unspecified; G47.33 Obstructive sleep apnea (adult) (pediatric); Z99.89 Dependence on other enabling machines and devices; J45.909 Unspecified asthma, uncomplicated; Z87.891 Personal history of nicotine dependence; Z82.49 Family history of ischemic heart disease and other diseases of the circulatory system; Z83.3 Family history of diabetes mellitus; Z80.42 Family history of malignant neoplasm of prostate; Z79.82 Long term (current) use of aspirin; Z79.899 Other long term (current) drug therapy; Z91.018 Allergy to other foods

== ENCOUNTER → 2017-03-19 | Outpatient (CLI) | payer OTHER ==
[~2017-03-19] MED LIST changes: +FERR325T3 PO; +FLUTISP; +VITMTA PO
[2017-03-19 09:59] LABS: ALBUMIN 3.4 GM/DL (3.2-5.2); ALBUMIN/GLOBULIN RATIO 0.89 (1.00-1.93); ALKALINE PHOSPHATASE 91 U/L (45-117); ALT/SGPT 50 U/L (12-78); ANION GAP 7 MEQ/L (8-16); AST/SGOT 33 U/L (15-37); BILIRUBIN,TOTAL 0.7 MG/DL (0.2-1.0); BLOOD UREA NITROGEN 14 MG/DL (7-18); CALCIUM LEVEL 8.9 MG/DL (8.5-10.1); CARBON DIOXIDE LEVEL 29 MEQ/L (21-32); CHLORIDE LEVEL 106 MEQ/L (98-107); GLOMERULAR FILTRATION RATE > 60.0 (>56); GLUCOSE, FASTING 111 MG/DL (70-105); SODIUM LEVEL 142 MEQ/L (136-145); TOTAL PROTEIN 7.2 GM/DL (6.4-8.2)
[2017-03-19 10:06] LABS: BASO % 0.4 % (0.0-1.0); EOS # 0.2 K/mm3 (0.0-0.50); LARGE UNSTAINED CELL # 0.1 K/mm3 (0.0-0.4); LARGE UNSTAINED CELL % 1.9 % (0.0-4.0); LYMPH # 1.5 K/mm3 (1.5-4.5); LYMPH % 25.8 % (24.0-44.0); MEAN CORPUSCULAR HEMOGLOBIN 26.8 pg (27.0-33.0); MEAN CORPUSCULAR HGB CONC 31.4 g/dl (32.0-36.5); MEAN CORPUSCULAR VOLUME 85.2 fl (80.0-96.0); MONO # 0.4 K/mm3 (0.0-0.8); MONO % 6.7 % (0.0-5.0); NEUTROPHILS # 3.4 K/mm3 (1.8-7.7); NEUTROPHILS % 61.2 % (36.0-66.0); PLATELET COUNT, AUTOMATED 187 k/mm3 (150-450); RED CELL DISTRIBUTION WIDTH 15.3 % (11.5-14.5); WHITE BLOOD COUNT 5.5 K/mm3 (4.0-10.0)
== END ==
LOC: M WUC 08:09
PROVIDERS: ATTEND Nurse Practitioner Family
DX: C7A.011 Malignant carcinoid tumor of the jejunum (principal); D50.9 Iron deficiency anemia, unspecified; I10 Essential (primary) hypertension

== ENCOUNTER → 2017-03-26 | Outpatient (CLI) | payer OTHER ==
[~2017-03-26] MED LIST changes: +GASTROGRAFIN SOLUTION 30ML (Q9963) As Ordered ONE; +ISOVUE-370 76% 100ML VIAL (Q9967) As Ordered ONE
--- NOTE | 2017-03-28 07:59 | REP ---
Clinical: Gastrointestinal stromal tumor. Comparison: 12/28/2016. Technique: Axial contrast enhanced images from the thoracic inlet to the upper abdomen using 100 ml Isovue 370 intravenous contrast material with coronal and sagittal re-formations. Findings: Lung littlejohn demonstrate scattered chronic interstitial changes along with right apical scarring and small scattered bullae. Findings are essentially unchanged when compared to prior examination including very small scattered non solid ground-glass opacities, 4 mm left upper lobe nodule (image 43) and 3-4 mm right lower lobe nodule (image 46). No significant acute areas of consolidation, significant nodule or mass lesion identified. The tracheobronchial tree is patent. No pleural effusion/reaction or pneumothorax. No axillary, hilar, or mediastinal adenopathy. Moderate atherosclerotic changes to the thoracic aorta and coronary arteries noted without aortic aneurysm/dissection or cardiomegaly. No pericardial effusion. Surrounding musculoskeletal structures are intact without focal osseous abnormality. Limited evaluation of the upper abdomen in straits normal bilateral adrenal glands. Impression: 1. Minimal apical scarring and scattered interstitial changes remain stable compared to 12/28/2016. 2. No acute mediastinal or pleuroparenchymal process appreciated. 3. Atherosclerotic changes to the coronary arteries. Signed by Martell Diaz MD 03/28/2017 07:50 A
--- NOTE | 2017-03-28 08:06 | REP ---
Clinical: Gastrointestinal stromal tumor. Comparison: 12/28/2016. Technique: Axial contrast enhanced images from the lung bases to the pubic symphysis using oral and 100 ml Isovue 370 intravenous contrast material with precontrast and delayed images of the abdomen as well as coronal and sagittal re-formations. Findings: Lung bases suggest chronic changes without acute process. Hepatic steatosis without focal hepatic lesion identified. Spleen, pancreas, gallbladder, bilateral adrenal glands are normal. Kidneys demonstrate stable bilateral lesions measuring up to 2.7 cm in the right kidney and 1.6 cm in left kidney. These renal lesions remains stable in density during precontrast, contrast enhanced and delayed imaging and likely represent simple and complex/proteinaceous cysts. There is evidence for distal duodenal/proximal jejunal resection and anastomoses (images 43 - 70) which appears relatively appropriate and without obvious residual mass lesion or complication. Few lymph nodes in the epigastric region measure up to 14 mm and remain essentially stable compared to prior examination. The enteric system including stomach, small, and large bowel otherwise demonstrates colonic diverticulosis without acute diverticulitis, and a normal terminal ileum and appendix in the right lower quadrant. No evidence for obstruction, acute inflammatory process, or mass lesion involving the enteric system is appreciated. Pelvis demonstrates normal bladder and mildly prominent prostate gland. Sub centimeter mesenteric and retroperitoneal lymph nodes are nonspecific. No ascites. No free air. No obvious mass lesion. Moderate atherosclerotic changes of the aorta and vasculature noted without aneurysm. Musculoskeletal structures are intact small fat containing left inguinal hernia suggested. Impression: 1. 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 Few lymph nodes in the epigastric region measuring up to 14 mm remains stable and nonspecific. 2. Colonic diverticulosis without acute diverticulitis. 3. Kidneys demonstrate presumed simple and complex cysts which may be followed by ultrasound if necessary. 4. No ascites, significant adenopathy, or mass lesion appreciated. Signed by Martell Diaz MD 03/28/2017 07:58 A
== END ==
LOC: M RAD 08:35
PROVIDERS: ATTEND Internal Medicine Medical Oncology
DX: D48.1 Neoplasm of uncertain behavior of connective and other soft tissue (principal)

== ENCOUNTER → 2017-07-23 | Outpatient (CLI) | payer OTHER ==
[2017-07-23 09:28] LABS: BASO % 0.7 % (0.0-1.0); EOS # 0.3 10^3/uL (0.0-0.50); EOS % 4.5 % (0.0-3.0); HEMATOCRIT 45.9 % (42.0-52.0); IMMATURE GRANULOCYTE % 0.7 % (0-0); LYMPH # 1.6 10^3/uL (1.5-4.5); MEAN CORPUSCULAR HEMOGLOBIN 29.7 pg (27.0-33.0); MEAN CORPUSCULAR HGB CONC 32.7 g/dl (32.0-36.5); MEAN CORPUSCULAR VOLUME 90.9 fl (80.0-96.0); MONO # 0.5 10^3/uL (0.0-0.8); MONO % 8.4 % (0.0-5.0); NEUTROPHILS # 3.4 10^3/uL (1.8-7.7); NEUTROPHILS % 58.7 % (36.0-66.0); PLATELET COUNT, AUTOMATED 194 10^3/uL (150-450); RED BLOOD COUNT 5.05 10^6/uL (4.30-6.10); RED CELL DISTRIBUTION WIDTH 14.5 % (11.5-14.5); WHITE BLOOD COUNT 5.7 10^3/uL (4.0-10.0)
[2017-07-23 10:09] LABS: IRON (FE) 126 UG/DL (65-175)
== END ==
LOC: M WUC 08:02
DX: I10 Essential (primary) hypertension (principal); D50.9 Iron deficiency anemia, unspecified
CPT/HCPCS: 83540

== ENCOUNTER → 2017-10-01 | Outpatient (CLI) | payer OTHER ==
[~2017-10-01] MED LIST changes: -ADV250INH INH; -ASPI1TAB PO; -FERR325T3 PO; -FISH100049 PO; -FLUTISP; +GASTROGRAFIN SOLUTION 30ML (Q9963) As Ordered; -GASTROGRAFIN SOLUTION 30ML (Q9963) As Ordered ONE; +ISOVUE-370 76% 100ML VIAL (Q9967) As Ordered; -ISOVUE-370 76% 100ML VIAL (Q9967) As Ordered ONE; -LISI10TA2 PO; -MULTTAB12 PO; -PRIL20CA9 PO; -VITMTA PO
== END ==
LOC: M RAD 08:52
DX: D48.1 Neoplasm of uncertain behavior of connective and other soft tissue (principal); R91.8 Other nonspecific abnormal finding of lung field
CPT/HCPCS: Q9963

== ENCOUNTER → 2018-02-19 | Outpatient (REF) | payer OTHER ==
[2018-02-19 18:27] LABS: APPEARANCE, URINE CLEAR (CLEAR); BACTERIA, URINE AUTO NEGATIVE (NEGATIVE); BILIRUBIN, URINE AUTO NEGATIVE (NEGATIVE); BLOOD, URINE BLOOD NEGATIVE (NEGATIVE); COLOR, URINE YELLOW (YELLOW); GLUCOSE, URINE (UA) AUTO NEGATIVE (NEGATIVE); KETONE, URINE AUTO NEGATIVE (NEGATIVE); LEUKOCYTE ESTERASE, URINE AUTO NEGATIVE (NEGATIVE); NITRITE, URINE AUTO NEGATIVE (NEGATIVE); PROTEIN, URINE AUTO NEGATIVE (NEGATIVE); RBC, URINE AUTO 1 /HPF (0-3); SPECIFIC GRAVITY URINE AUTO 1.016 (1.002-1.035); SQUAMOUS EPITHELIAL CELL UR AU 0 /HPF (0-6); WBC, URINE AUTO 1 /HPF (0-3)
== END ==
LOC: M SMT 17:59
DX: R97.20 Elevated prostate specific antigen [PSA] (principal)

== ENCOUNTER → 2018-02-26 | Outpatient (CLI) | payer OTHER | LOC: M SMT PRO 09:07 | DX: C61 Malignant neoplasm of prostate (principal) | CPT/HCPCS: G0416 ==

== ENCOUNTER → 2018-04-01 | Outpatient (CLI) | payer OTHER ==
[~2018-04-01] MED LIST changes: -GASTROGRAFIN SOLUTION 30ML (Q9963) As Ordered
== END ==
LOC: M RAD 09:31
DX: D48.1 Neoplasm of uncertain behavior of connective and other soft tissue (principal); I70.0 Atherosclerosis of aorta; I25.10 Atherosclerotic heart disease of native coronary artery without angina pectoris; K76.0 Fatty (change of) liver, not elsewhere classified
CPT/HCPCS: Q9967

== ENCOUNTER → 2018-04-10 | Outpatient (CLI) | payer OTHER ==
[~2018-04-10] MED LIST changes: +GASTROGRAFIN SOLUTION 30ML (Q9963) As Ordered
== END ==
LOC: M RAD 14:52
DX: C49.A3 Gastrointestinal stromal tumor of small intestine (principal); R94.5 Abnormal results of liver function studies; K76.0 Fatty (change of) liver, not elsewhere classified; K57.30 Diverticulosis of large intestine without perforation or abscess without bleeding; N40.0 Benign prostatic hyperplasia without lower urinary tract symptoms
CPT/HCPCS: Q9963

== ENCOUNTER → 2018-10-29 | Outpatient (CLI) | payer OTHER ==
[~2018-10-29] MED LIST changes: +ADV250INH INH; +ASPI81TA26 PO; +CIAL5TAB PO; +FERR325T3 PO; +FISH100049 PO; +FLUTISP; -GASTROGRAFIN SOLUTION 30ML (Q9963) As Ordered; -ISOVUE-370 76% 100ML VIAL (Q9967) As Ordered; +LISI10TA2 PO; +MULTTAB12 PO; +PRIL20CA9 PO; +PX O20TA PO; +VITMTA PO
== END ==
LOC: M SMT 09:03
PROVIDERS: ATTEND Urology
DX: R97.20 Elevated prostate specific antigen [PSA] (principal)

== ENCOUNTER → 2019-04-09 | Outpatient (CLI) | payer OTHER ==
[~2019-04-09] MED LIST changes: +GASTROGRAFIN SOLUTION 30ML (Q9963) As Ordered ONE; +ISOVUE-370 76% 100ML VIAL (Q9967) As Ordered ONE; +LISI10TA15 PO; -LISI10TA2 PO
--- NOTE | 2019-04-09 10:59 | REP ---
CT of the chest with IV contrast: Comparison is 04/01/2018. There are no lung nodules or masses. There are no infiltrates or pleural effusions. The lung littlejohn are unchanged. There is no mediastinal, hilar or axillary lymphadenopathy. This is unchanged. The thoracic aorta is unremarkable. There is coronary artery calcified atheroma. Cardiac size is normal. There is no pericardial effusion. Impression: There is no adenopathy or metastatic disease. No change from the prior study. Electronically Signed by Zaki Helm MD 04/09/2019 10:51 A
--- NOTE | 2019-04-09 11:24 | REP ---
CT of the abdomen pelvis without and with IV contrast and with bowel contrast: After IV contrast dual phase imaging is performed, initially during the portal venous phase of enhancement and repeated during the delayed equilibrium phase of enhancement. Comparison is 04/10/2018. The studies performed contiguously with the chest CT this same date. The hepatic parenchyma is diffusely hypodense, unchanged, compatible with steatosis. There are no hepatic masses. The gallbladder, pancreas and spleen are normal size, unremarkable and unchanged. The adrenals are unremarkable. The kidneys are unremarkable except for bilateral renal cortical simple cysts. These are unchanged. The abdominal aorta is unremarkable except for calcified atheroma. There is no periaortic adenopathy or mass. There is a circumferential small bowel. Surgical anastomotic suture line just distal to the ligament of Treitz, unchanged. No evidence of tumor recurrence is identified. The appearance is similar to the comparison study. The gastric wall is grossly unremarkable, however, the stomach is incompletely distended, the CT is insensitive for evaluation of a gastric wall. There are a few normal-size mesenteric nodes, unchanged. There is diverticulosis of the descending colon and sigmoid colon. There are focal pericolonic inflammatory changes at the mid descending colon compatible with diverticulitis as an interval change. There is no pericolonic fluid collection to suggest abscess. There is no pneumoperitoneum. There is no ascites. Pelvis: The appendix is unremarkable. There is no adenopathy or ascites. The bladder is unremarkable. There are no lytic, blastic or destructive skeletal changes. There is bilateral L5 spondylolysis, unchanged. Impression: No change from the prior study. There are a few normal size mesenteric nodes, unchanged. There is small bowel partial resection is again identified, unchanged. Hepato steatosis. There are no hepatic masses. Focal diverticulitis in the mid descending colon without pericolonic abscess, pneumoperitoneum or ascites. This is a change from the prior study. Chronic L5 bilateral spondylolysis without spondylolisthesis. Electronically Signed by Zaki Helm MD 04/09/2019 11:16 A
== END ==
LOC: M RAD 07:27
PROVIDERS: ATTEND Internal Medicine Hematology & Oncology
DX: C17.9 Malignant neoplasm of small intestine, unspecified (principal)
CPT/HCPCS: 71260; 74178; Q9963; Q9967

== ENCOUNTER → 2022-07-24 | Outpatient (REF) | payer OTHER ==
[~2022-07-24] MED LIST changes: -GASTROGRAFIN SOLUTION 30ML (Q9963) As Ordered ONE; -ISOVUE-370 76% 100ML VIAL (Q9967) As Ordered ONE; -LISI10TA15 PO; +LISI10TA24 PO; +OMEP-404 PO; -PX O20TA PO
== END ==
LOC: M LABDRWAD 16:17
PROVIDERS: ATTEND Specialist
DX: R97.20 Elevated prostate specific antigen [PSA] (principal)

== ENCOUNTER → 2022-08-04 | Outpatient (CLI) | payer OTHER | LOC: M WHC 08-03 08:40 | PROVIDERS: ATTEND Nurse Practitioner Family | DX: K76.0 Fatty (change of) liver, not elsewhere classified (principal); N28.1 Cyst of kidney, acquired; R74.01 Elevation of levels of liver transaminase levels ==

== ENCOUNTER 2023-05-03 08:26 | Emergency (ER) | payer OTHER ==
[~2023-05-03] VITALS: Ht 180.3 cm; Wt 117.9 kg
[~2023-05-03 08:26] MED LIST changes: +FLUT50SP17; -FLUTISP
[2023-05-03] MEDS ORDERED: CHLO125TA (08:48)
[2023-05-03] MEDS ORDERED: CLAR10CA3 PO (08:48)
[2023-05-03] MEDS ORDERED: FLOM0.4C39 PO (08:48)
[2023-05-03] MEDS ORDERED: LISI20TA33 PO (08:48)
[2023-05-03] MEDS ORDERED: ROSU20TA61 PO (08:48)
[2023-05-03] MEDS ORDERED: NAPR-885 PO (08:48)
[2023-05-03 09:21] LABS: BASO % 0.1 % (0.0-1.0); EOS # 0.2 10^3/uL (0.0-0.5); EOS % 2.2 % (0.0-3.0); HEMATOCRIT 43.5 % (42.0-52.0); HEMOGLOBIN 14.8 g/dl (13.5-17.5); LYMPH # 1.2 10^3/uL (1.5-5.0); LYMPH % 16.7 % (24.0-44.0); MEAN CORPUSCULAR HEMOGLOBIN 31.6 pg (27.0-33.0); MEAN CORPUSCULAR VOLUME 92.9 fl (80.0-96.0); MONO # 0.6 10^3/uL (0.0-0.8); MONO % 8.2 % (2.0-8.0); NEUTROPHILS # 5.4 10^3/uL (1.5-8.5); NEUTROPHILS % 72.7 % (36.0-66.0); PLATELET COUNT, AUTOMATED 195 10^3/uL (150-450); RED BLOOD COUNT 4.68 10^6/uL (4.30-6.10); WHITE BLOOD COUNT 7.4 10^3/uL (4.0-10.0)
[2023-05-03 09:31] LABS: ERYTHROCYTE SEDIMENTATION RATE 50 mm/hr (0-20)
[2023-05-03 09:51] LABS: URIC ACID 7.7 MG/DL (3.7-9.2)
[2023-05-03 09:53] LABS: C REACTIVE PROTEIN QUANTITATIV 3.2 MG/DL (<1.0)
[2023-05-03] MEDS ORDERED: CEPH500C PO (10:53)
[2023-05-03] MEDS ORDERED: NAPR-849 PO (10:53)
[2023-05-03] MEDS ORDERED: NAPROXEN 250 MG TAB PO ONE (11:00)
[2023-05-03 11:15] VITALS: BP 147/81; TEMP 98.1; O2SAT 97
== END 2023-05-03 11:16 | disposition home or self-care (01) ==
LOC: M ED 08:26
DX: M77.8 Other enthesopathies, not elsewhere classified (principal); M10.9 Gout, unspecified; I10 Essential (primary) hypertension; J30.89 Other allergic rhinitis; Z85.46 Personal history of malignant neoplasm of prostate; Z79.899 Other long term (current) drug therapy; Z91.018 Allergy to other foods

== ENCOUNTER → 2025-01-06 | Outpatient (CLI) | payer MEDICARE, OTHER ==
[~2025-01-06] MED LIST changes: -ADV250INH INH; +ADVA1AER9 INH; +CEPH500C PO; +CHLO125TA; +CLAR10CA3 PO; -FLUT50SP17; +FLUTISP; +LISI20TA33 PO; +NAPR-849 PO; +NAPR-885 PO; +ROSU20TA86 PO; +TAMS-18 PO
== END ==
LOC: M RAD 09:01
PROVIDERS: ATTEND Plastic Surgery Surgery of the Hand
DX: R22.0 Localized swelling, mass and lump, head (principal)

== ENCOUNTER 2025-02-26 06:12 | Day surgery (SDC) | payer OTHER, MEDICARE ==
[~2025-02-26] VITALS: Ht 180.3 cm; Wt 117.4 kg
[~2025-02-26 06:12] MED LIST changes: +ceFAZolin SOD 3 GM in DEXTROSE 5% (D5W) MINI-BAG PLU 1... IV ONE
[2025-02-26] MEDS: LR 1,000 ML IV SCH (06:50)
[2025-02-26] MEDS ORDERED: LIDOCAINE 2% 100 MG/5 ML SDV (FOR ANES.) As Ordered ONE (07:22)
[2025-02-26] MEDS ORDERED: MIDAZOLAM INJ 2 MG/2 ML VIAL As Ordered ONE (07:23)
[2025-02-26] MEDS: LIDOCAINE 2% MDV 20 ML VIAL As Ordered ONE (07:23)
[2025-02-26] MEDS ORDERED: ONDANSETRON 4MG 2ML VIAL As Ordered ONE (07:23)
[2025-02-26] MEDS: ceFAZolin SOD 2 GM IV ONCE IV ONE (07:58)
[2025-02-26] MEDS ORDERED: LIDOCAINE 5% OINT 30 GM TUBE As Ordered ONE (08:01)
[2025-02-26] MEDS: LIDOCAINE W/EPINEPHrine 1% 20 ML VIAL As Ordered ONE (08:08)
[2025-02-26] MEDS ORDERED: ACETAMINOPHEN 1000MG/100ML IV BAG As Ordered ONE (08:15)
[2025-02-26] MEDS: LIDOCAINE 2% W/EPINEPHrine 20 ML VIAL **PRES FREE As Ordered ONE (08:43)
[2025-02-26] MEDS ORDERED: LR 1,000 ML IV SCH (08:55)
[2025-02-26] MEDS ORDERED: ONDANSETRON 4MG 2ML VIAL IV PRN (08:55)
[2025-02-26] MEDS ORDERED: HYDROMORPHONE HCL 0.5 MG/0.5 ML SYRINGE IV PRN (08:55)
[2025-02-26 10:08] VITALS: BP 153/76; TEMP 98.7; O2SAT 99
== END 2025-02-26 10:11 | disposition home or self-care (01) ==
LOC: M SDC 06:12
PROVIDERS: ATTEND Plastic Surgery Surgery of the Hand
DX: L72.0 Epidermal cyst (principal); L57.8 Other skin changes due to chronic exposure to nonionizing radiation; G47.30 Sleep apnea, unspecified; Z91.018 Allergy to other foods; J30.1 Allergic rhinitis due to pollen; Z79.899 Other long term (current) drug therapy; Z87.891 Personal history of nicotine dependence
CPT/HCPCS: 11443; 12051; 88305; J0131; J0690; J2250; J2405; J2765; J3010

== ENCOUNTER → 2025-04-27 | Outpatient (REF) | payer OTHER, MEDICARE ==
[~2025-04-27] MED LIST changes: -ceFAZolin SOD 3 GM in DEXTROSE 5% (D5W) MINI-BAG PLU 1... IV ONE
== END ==
LOC: M LABDRWAD 17:09
PROVIDERS: ATTEND Urology
DX: C61 Malignant neoplasm of prostate (principal)